=== PATIENT | female | born 1980 | race African-American/Black ===

== ENCOUNTER 2018-04-13 08:13 | Outpatient (CLI) | payer OTHER ==
--- NOTE | 2018-04-14 12:16 | XRay Report ---
Chest 2 views: History: Chest pain pulmonary dizziness. Findings: Normal cardiomediastinal silhouette. Trachea is midline. No consolidation, pneumothorax or pleural effusion. Next Impression: No acute cardiopulmonary findings.
== END 2018-04-13 08:14 | disposition home or self-care (01) ==
LOC: XRAY 08:13
PROVIDERS: ATTEND Family Medicine
DX: R07.9 Chest pain, unspecified (principal); R06.02 Shortness of breath; R42 Dizziness and giddiness
CPT/HCPCS: 71046